=== PATIENT | female | born 1975 ===

== ENCOUNTER 2016-05-30 07:45 | Inpatient (IN) | payer OTHER ==
[~2016-05-30] VITALS: Ht 182.9 cm; Wt 74.1 kg
[2016-05-30] MEDS ORDERED: LACTATED RINGER'S 1000ML 1,000 ML IV PRN (08:03)
[2016-05-30] MEDS ORDERED: LACTATED RINGER'S 1000ML 1,000 ML IV SCH ×2 (08:03→12:40)
[2016-05-30] MEDS ORDERED: MAGNESIUM SULFATE / WTR 1,000 ML IV ONE (08:05)
[2016-05-30] MEDS ORDERED: MAGNESIUM SULFATE 4GM / WTR 4 GM BAG ONE (08:22)
[2016-05-30] MEDS ORDERED: MAGNESIUM SULFATE 40GM/ WTR 1,000 ML BAG ONE (08:25)
[2016-05-30] MEDS ORDERED: BETAMETH SOD PHOS/ACETATE IA 6 MG/ML ONE (08:27)
[2016-05-30] MEDS ORDERED: MAGNESIUM SULFATE 4GM / WTR 100ML IV ONE (08:30)
[2016-05-30] MEDS ORDERED: PENICILLIN G POTASSIUM IV 6 MU in DEXTROSE 5% 250ML 250 ML IV SCH (08:30)
[2016-05-30] MEDS ORDERED: BETAMETH SOD PHOS/ACETATE IA 6 MG/ML IM SCH (08:30)
[2016-05-30] MEDS ORDERED: MAGNESIUM SULFATE 40GM / WTR 1000 ML IV SCH (08:30)
--- NOTE | 2016-05-30 08:42 | HISTORY & PHYSICAL EXAMINATION ---
DATE OF ADMISSION: 05/30/2016 CHIEF COMPLAINT: Leakage of fluid. HISTORY OF PRESENT ILLNESS: The patient is a 40-year-old G2, P0-0-1-0 at 33 weeks of gestation who woke up this morning and had a gush of fluid leakage at 7:00 a.m. and it has been clear. She also has been having pelvic pressure and irregular cramping since then. She denies any vaginal bleeding. She denies contractions and she reports good movements. She denies fever, chills, chest pain, shortness of breath, headache, change in her vision, nausea, vomiting, epigastric or right upper quadrant pain. Her has been uncomplicated except: 1. Advanced maternal age. She had panorama testing which was positive for trisomy 13. She then had amniocentesis and it was negative at [facility]. We do not have those records. 2. Planned home dental biller delivery per patient. PAST MEDICAL HISTORY: As above. PAST SURGICAL HISTORY: Tonsillectomy, colposcopy services in 2014, skin biopsy of late. OBSTETRICAL HISTORY: This is her second . She had 16 weeks termination in 2012. MEDICATIONS: vitamins. ALLERGIES: No known drug allergies. SOCIAL HISTORY: The patient denies smoking, alcohol or drug use. 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 GYNECOLOGIC HISTORY: The patient has a history of abnormal Pap smear in 2014, which was low grade and repeat was normal. She denies any history of STDs including Chlamydia, gonorrhea, and herpes. LABORATORY DATA: Her blood type is O positive, antibody screen negative, hepatitis B surface antigen negative, RPR nonreactive, rubella positive, GC and chlamydia cultures were negative. H\T\H was 13/38, platelets were 279. Her Glucola testing was 130 mg/dL. She declined 3-hour GTT. Repeat H\T\H was 12/35.9, platelets 224. GBS is unknown. PHYSICAL EXAMINATION: GENERAL: The patient is alert, oriented x3, not in acute distress. VITAL SIGNS: Stable. Afebrile. CARDIOVASCULAR SYSTEM: S1, S2, RRR. LUNGS: Clear to auscultation bilaterally. ABDOMEN: Soft, gravid, nontender. EXTREMITIES: Nontender, no edema. PELVIC: Speculum exam shows pooling grossly ruptured, clear amniotic fluid. Nitrazine positive. Ferning positive. cervix dilated to 4 cm, 90%, and -1 heart rate 130s, category 1. [place] contractions every 3-4 minutes. ASSESSMENT AND PLAN: The patient is a 40-year-old 2, para 0-0-1-0 at 33 weeks of gestation with premature rupture of membranes and in labor with contractions. Vital signs stable, afebrile. heart rate reassuring. The findings were discussed with the patient She understands the baby is and will need to be transferred to a tertiary care center where NICU is available She desires to be transferred with the baby now and so that she can be with her / him. Plan is to start an IV magnesium tocolysis, PCN for unknown GBS, first dose of Celestone for lung maturation. [facility] is called and Dr. Curry is accepting the patient. Attempt was made to transfer with [employer] but unable due to weather condition. Will transfer with an ambulance and L&D nurse The patient understands the risks of delivering on the way and she agrees with the above plan. CHAUNCEY
[2016-05-30 08:49] LABS: HEMATOCRIT 33.7 % (37-47); MEAN CELL VOLUME 89.4 fL (80-100); MEAN CORPUSCULAR HEMOGLOBIN 31.8 pg (25-34); MEAN CORPUSCULAR HGB CONC 35.6 g/dl (32-36); MEAN PLATELET VOLUME 10.4 fL (7.4-10.4); PLATELET COUNT 202 K/uL (130-400); RED BLOOD COUNT 3.77 M/uL (4.2-5.4); WHITE BLOOD COUNT 8.98 K/uL (4.8-10.8)
[2016-05-30] MEDS ORDERED: OXYTOCIN 30 UNITS/500ML NSS IV ONE (10:11)
[2016-05-30] MEDS ORDERED: ACETAMINOPHEN 325 MG TAB PO PRN (12:45)
[2016-05-30] MEDS ORDERED: HYDROCORTISONE ACETATE 25 MG SUPP PR PRN (12:45)
[2016-05-30] MEDS ORDERED: OXYCODONE/ACETAMINOPHEN 5-325 TAB PO PRN (12:45)
[2016-05-30] MEDS ORDERED: OXYTOCIN 30 UNITS/500ML NSS IV PRN (12:45)
[2016-05-30] MEDS ORDERED: MEASLES, MUMPS & RUBELLA VIRUS VIAL SQ. ONE (12:45)
[2016-05-30] MEDS ORDERED: SUPERCREAM 0.870 % 15GM JAR EXT PRN (12:45)
[2016-05-30] MEDS ORDERED: LANOLIN OINT EXT PRN ×2 (12:45)
[2016-05-30] MEDS ORDERED: BENZOCAINE 20% AER SPR 82.5 GM CAN EXT PRN (12:45)
[2016-05-30] MEDS ORDERED: DIPHTHERIA/TETANUS/PERTUSSIS 0.5 ML SYR/VIAL IM. ONE (12:45)
[2016-05-30] MEDS ORDERED: IBUPROFEN 600 MG TAB PO PRN (12:45)
[2016-05-30] MEDS ORDERED: PRENTAB65 PO (13:15)
[2016-05-30] MEDS ORDERED: IV FLUIDS COMPLETED PRN (13:45)
--- NOTE | 2016-05-30 14:02 | DELIVERY SUMMARY ---
DATE OF OPERATION: 05/30/2016 TIME OF DELIVERY OF BABY: 12:12 p.m. TIME OF DELIVERY OF PLACENTA: 12:33 p.m. DETAILS OF DELIVERY: The patient is a 40-year-old G2, P0-0-1-0 at 33 weeks of gestation who presented today with premature rupture of membranes at 7:00 a.m. Initial plan was to transfer her to [facility] for NICU. She then progressed to 8 cm within 1-1/2 hours and decision was to keep her here and deliver with the steam station supervisor. She was found to be fully dilated and desired to push. She pushed for about an hour and delivered the baby's head without difficulty. Shoulders were delivered with minimal traction and baby was handed to the mother where the mouth and nose were suctioned. Cord was clamped x2. After 30 seconds of waiting, it was cut and baby was handed to the steam station supervisor, Dr. Liu and then cord blood was obtained. Vagina and perineum were checked for lacerations. There was a second-degree perineal laceration at the posterior fourchette confirmed with rectal exam. Good sphincter tone was noted. The sphincter muscles were reinforced with 2-0 Vicryl with [id number] stitch x2 Gloves were changed and then vaginal mucosa and perineal body muscles were reapproximated with 2-0 Vicryl in a running fashion and skin in a subcuticular fashion. The rectal exam was repeated and no sutures were felt. Gloves were changed and the placenta was found to be in the vagina, delivered spontaneously intact and complete and lower segment was cleared of all clots and debris. Fundus was firm and uterus was empty. EBL was 300. Baby was a viable male infant, Apgars 8/9. Weight was 3020 gr. No complications happened and I was present during whole procedure. I attest to the content of the Intraoperative Record and any orders documented therein. Any exceptions are noted below. MARALD
[2016-05-30 15:19] VITALS: Ht 182.9 cm; Wt 74.1 kg
[2016-05-30 15:30] VITALS: BP 111/71; PULSE 65; TEMP 36.4; O2SAT 99
[2016-05-30 19:55] VITALS: BP 115/69; PULSE 74; TEMP 36.7
[2016-05-30] MEDS: DOCUSATE SODIUM 100 MG CAP PO SCH (19:57)
[2016-05-30 23:50] VITALS: BP 100/63; PULSE 60; TEMP 36.8
[2016-05-31 04:30] VITALS: BP 99/60; PULSE 68; TEMP 36.7
[2016-05-31 07:35] VITALS: BP 105/69; PULSE 66; TEMP 36.7
[2016-05-31 08:00] LABS: HEMATOCRIT 32.9 % (37-47)
[2016-05-31] MEDS: FERROUS SULFATE 325 MG TAB PO SCH (08:36)
[2016-05-31] MEDS: PRENATAL VITAMIN TAB PO SCH (09:14)
[2016-05-31] MEDS: DOCUSATE SODIUM 100 MG CAP PO SCH ×2 (09:14→20:25)
[2016-05-31 12:45] VITALS: BP 111/71; PULSE 93; TEMP 36.6
--- NOTE | 2016-05-31 12:57 | OB/GYN Progress Note ---
BUSINESS LAW TEACHER Progress Note Date of Service May 31, 2016. Subjective conversation w/ patient, physical exam Ambulation: ambulating normally Voiding: no voiding problems Passing Gas: Yes Diet Tolerance: Regular Diet Lochia: Moderate Feeding Type: Breast Feeding Review of Systems Constitutional: No chills, No fatigue, No fever, No problem reported, No sweats , No weakness, No weight loss Respiratory: No cough, No dyspnea at rest, No dyspnea on exertion, No hemoptysis, No problem reported, No shortness of breath, No sputum, No wheezing Cardiac: No PND, No chest pain, No claudication, No edema, No orthopnea, No palpitations, No problem reported Breast: No breast lump, No breast pain, No change in shape, No nipple discharge , No problem reported, No see HPI Abdomen: No GI bleeding, No constipation, No diarrhea, No nausea, No pain, No problem reported, No vomiting Female : No abnormal vaginal bleeding, No dysuria, No hematuria, No incontinence, No problem reported, No see HPI, No urinary frequency, No vaginal discharge VD day #1 Pt doing well continue care Objective Vital Signs Date Time Temp Pulse Resp B/P Pulse Ox O2 Delivery O2 Flow Rate FiO2 05/31/16 07:35 36.7 66 20 105/69 05/31/16 04:30 36.7 68 16 99/60 Room Air 05/30/16 23:50 Room Air 05/30/16 23:50 36.8 60 18 100/63 Room Air 05/30/16 19:55 36.7 74 18 115/69 Room Air 05/30/16 15:30 36.4 65 18 111/71 99 Room Air 05/30/16 15:30 99 Room Air Laboratory Results Last 24 Hours Test 05/31/16 07:47 Hemoglobin 11.5 g/dL Hematocrit 32.9 %
[2016-05-31 16:50] VITALS: BP 102/63; PULSE 72; TEMP 36.8
[2016-05-31] MEDS ORDERED: BISACODYL 5 MG TABEC PO SCH (22:00)
[2016-05-31 23:20] VITALS: BP 118/75; PULSE 70; TEMP 36.6; O2SAT 100
[2016-06-01] MEDS ORDERED: BISACODYL 10 MG SUPP PR PRN (07:00)
[2016-06-01 07:58] LABS: HEMATOCRIT 32.4 % (37-47); MEAN CELL VOLUME 91.5 fL (80-100); MEAN CORPUSCULAR HEMOGLOBIN 31.9 pg (25-34); MEAN CORPUSCULAR HGB CONC 34.9 g/dl (32-36); MEAN PLATELET VOLUME 10.3 fL (7.4-10.4); PLATELET COUNT 205 K/uL (130-400); RED BLOOD COUNT 3.54 M/uL (4.2-5.4); WHITE BLOOD COUNT 11.89 K/uL (4.8-10.8)
[2016-06-01] MEDS: DOCUSATE SODIUM 100 MG CAP PO SCH (08:27)
[2016-06-01] MEDS: PRENATAL VITAMIN TAB PO SCH (08:27)
[2016-06-01] MEDS: FERROUS SULFATE 325 MG TAB PO SCH (08:27)
[2016-06-01 08:35] VITALS: BP 107/68; PULSE 71; TEMP 36.7
[2016-06-01] MEDS ORDERED: MTR600X PO (08:53)
--- NOTE | 2016-06-01 09:00 | OB/GYN Progress Note ---
MANAGER UNIX Progress Note Date of Service Jun 01, 2016. Subjective conversation w/ patient, physical exam Ambulation: ambulating normally Voiding: no voiding problems Passing Gas: Yes Diet Tolerance: Regular Diet Lochia: Small Objective Vital Signs Date Time Temp Pulse Resp B/P Pulse Ox O2 Delivery O2 Flow Rate FiO2 05/31/16 23:20 100 Room Air 05/31/16 23:20 36.6 70 18 118/75 100 Room Air 05/31/16 16:50 36.8 72 20 102/63 05/31/16 12:45 36.6 93 20 111/71 Physical Exam General Appearance: WELL-APPEARING, NO APPARENT DISTRESS Abdomen: normal bowel sounds, non tender Fundus: Firm Incision Description: Clean, Dry & Intact Laboratory Results Last 24 Hours Test 06/01/16 07:45 White Blood Count 11.89 K/uL Red Blood Count 3.54 M/uL Hemoglobin 11.3 g/dL Hematocrit 32.4 % Mean Corpuscular Volume 91.5 fL Mean Corpuscular Hemoglobin 31.9 pg Mean Corpuscular Hemoglobin Concent 34.9 g/dl RDW Standard Deviation 44.3 fL RDW Coefficient of Variation 13.2 % Platelet Count 205 K/uL Mean Platelet Volume 10.3 fL Assessment and Plan Post- Day Number: 1
--- NOTE | 2016-06-01 09:03 | Discharge Instructions ---
Discharge Instructions Admission Reason for Admission: R/O Rupture Of Membranes Discharge Discharge Diagnosis / Problem: delivery Discharge Goals Goal(s): Routine recovery after delivery Activity Recommendations Activity Limitations: as noted below Lifting Limitations: no more than 10 pounds, gradually increase as tolerated Exercise/Sports Limitations: until after follow-up appointment May Resume Sexual Activity: when tolerated Shower/Bathe: no limitations Driving or Machine Use: no limitations . Current Hospital Diet Patient's current hospital diet: Regular OB Diet Discharge Diet Recommended Diet: Regular Diet Fluid Restriction: None Pending Studies Studies pending at discharge: no Medical Emergencies . Who to Call and When: Medical Emergencies: If at any time you feel your situation is an emergency, please call 911 immediately. . Non-Emergent Contact Non-Emergency issues call your: Primary Care Provider Call Non-Emergent contact if: you have a fever . . "Provider Documentation" section prepared by Jerald Condon. VTE Core Measure Inpt VTE Proph given/why not?: Treatment not indicated
[2016-06-01 16:25] VITALS: BP 100/62; PULSE 60; TEMP 36.8
[2016-06-01 21:59] VITALS: BP_DIAS 62; PULSE 60; TEMP 36.8
== END 2016-06-01 20:15 | disposition home or self-care (01) | DRG 775 ==
LOC: C.OPB 07:45 → C.LD 07:45 → C.OPB 08:05 → C.LD 08:05 → C.OBG 14:50
PROVIDERS: ADMIT Obstetrics & Gynecology; ATTEND Obstetrics & Gynecology
PROC: 0KQM0ZZ Repair Perineum Muscle, Open Approach (ICD-10-PCS; principal; 2016-05-30)
PROC: 10E0XZZ Delivery of Products of Conception, External Approach (ICD-10-PCS; principal; 2016-05-30)
DX: O42.913 Preterm premature rupture of membranes, unspecified as to length of time between rupture and onset of labor, third trimester (principal); O60.14X0 Preterm labor third trimester with preterm delivery third trimester, not applicable or unspecified; O70.1 Second degree perineal laceration during delivery; Z37.0 Single live birth; Z3A.33 33 weeks gestation of pregnancy; Z87.410 Personal history of cervical dysplasia